=== PATIENT | female | born 1930 | race Two or more races ===

== ENCOUNTER 2019-02-04 14:18 | Outpatient (RCR) | payer MEDICARE, OTHER ==
[~2019-02-04] VITALS: Ht 160 cm; Wt 72.6 kg
[~2019-02-04 14:18] MED LIST: ATORVASTATIN CA20 MG ORAL; CEPHALEXIN500 MG ORAL; CULTURELLE1 EACH ORAL; CYMBALTA60 MG ORAL; DITROPAN10 MG ORAL; JANUVIA100 MG ORAL; MAGNESIUM OXID400 M1 ORAL; MEGACE400 MG/11 PO; METFORMIN HCL500 M1 ORAL; METOPROLOL SUCC25 MG ORAL; OMEPRAZOLE20 M2 ORAL; ONE DAILY1 EAC3 ORAL; VITAMIN B125000 MCG PO; VITAMIN D-40400 UNIT ORAL; ZYPREXA2.5 MG ORAL
== END 2019-02-13 | disposition home or self-care (01) ==
LOC: WCC 14:18
DX: L89.154 Pressure ulcer of sacral region, stage 4 (principal); S40.8 Other superficial injuries of upper arm; F01.50 Vascular dementia, unspecified severity, without behavioral disturbance, psychotic disturbance, mood disturbance, and anxiety; X58.XXXS Exposure to other specified factors, sequela; F03.90 Unspecified dementia, unspecified severity, without behavioral disturbance, psychotic disturbance, mood disturbance, and anxiety; Z85.818 Personal history of malignant neoplasm of other sites of lip, oral cavity, and pharynx; I10 Essential (primary) hypertension; M19.90 Unspecified osteoarthritis, unspecified site
CPT/HCPCS: 11043; 97605

== ENCOUNTER 2019-02-25 13:39 | Outpatient (RCR) | payer MEDICARE, OTHER | END 2019-03-15 | disposition home or self-care (01) | LOC: WCC 13:39 | DX: L89.154 Pressure ulcer of sacral region, stage 4 (principal); S40.8 Other superficial injuries of upper arm; F01.50 Vascular dementia, unspecified severity, without behavioral disturbance, psychotic disturbance, mood disturbance, and anxiety; B35.6 Tinea cruris; Z85.818 Personal history of malignant neoplasm of other sites of lip, oral cavity, and pharynx; E11.9 Type 2 diabetes mellitus without complications; I10 Essential (primary) hypertension; M19.90 Unspecified osteoarthritis, unspecified site | CPT/HCPCS: 11043 ==

== ENCOUNTER 2019-04-08 13:42 | Outpatient (RCR) | payer MEDICARE, OTHER | END 2019-04-15 | disposition home or self-care (01) | LOC: WCC 13:42 | DX: L89.154 Pressure ulcer of sacral region, stage 4 (principal); S40.8 Other superficial injuries of upper arm; F01.50 Vascular dementia, unspecified severity, without behavioral disturbance, psychotic disturbance, mood disturbance, and anxiety; B35.6 Tinea cruris; X58.XXXS Exposure to other specified factors, sequela; E11.9 Type 2 diabetes mellitus without complications; I10 Essential (primary) hypertension; F03.90 Unspecified dementia, unspecified severity, without behavioral disturbance, psychotic disturbance, mood disturbance, and anxiety; Z85.818 Personal history of malignant neoplasm of other sites of lip, oral cavity, and pharynx; Z99.3 Dependence on wheelchair; M19.90 Unspecified osteoarthritis, unspecified site | CPT/HCPCS: 11043; 97605 ==

== ENCOUNTER 2019-04-29 13:12 | Outpatient (RCR) | payer MEDICARE, OTHER ==
[~2019-04-29] VITALS: Ht 160 cm; Wt 50.8 kg
[2019-05-14] MEDS ORDERED: Lidocaine HCl 2% Jelly 6ml Tube TOPIC ONE (09:15)
== END 2019-05-16 | disposition home or self-care (01) ==
LOC: WCC 13:12
DX: L89.154 Pressure ulcer of sacral region, stage 4 (principal); S40.8 Other superficial injuries of upper arm; F01.50 Vascular dementia, unspecified severity, without behavioral disturbance, psychotic disturbance, mood disturbance, and anxiety; B35.6 Tinea cruris; L89.103 Pressure ulcer of unspecified part of back, stage 3; E11.9 Type 2 diabetes mellitus without complications; I10 Essential (primary) hypertension; M19.90 Unspecified osteoarthritis, unspecified site; Z85.818 Personal history of malignant neoplasm of other sites of lip, oral cavity, and pharynx
CPT/HCPCS: 11043; 97605

== ENCOUNTER 2019-06-10 13:31 | Outpatient (RCR) | payer MEDICARE, OTHER ==
[~2019-06-10] VITALS: Ht 160 cm; Wt 50.8 kg
[2019-06-11] MEDS ORDERED: Lidocaine 4% Top Soln 50ml TOPIC ONE (15:30)
== END 2019-06-15 | disposition home or self-care (01) ==
LOC: WCC 13:31
DX: L89.154 Pressure ulcer of sacral region, stage 4 (principal); S40.8 Other superficial injuries of upper arm; F01.50 Vascular dementia, unspecified severity, without behavioral disturbance, psychotic disturbance, mood disturbance, and anxiety; B35.6 Tinea cruris; L89.103 Pressure ulcer of unspecified part of back, stage 3; I10 Essential (primary) hypertension; E11.9 Type 2 diabetes mellitus without complications; M19.90 Unspecified osteoarthritis, unspecified site; Z79.899 Other long term (current) drug therapy
CPT/HCPCS: 11043